=== PATIENT | male | born 1980 | race Caucasian/White ===

== ENCOUNTER 2016-11-12 13:36 | Emergency (ER) | payer OTHER ==
[~2016-11-12] VITALS: Ht 185.4 cm; Wt 88.1 kg
[2016-11-12] MEDS ORDERED: ERYTHROMYC1 APPLICAT RIGHT EYE (15:04)
[2016-11-12] MEDS ORDERED: POLYTRIM EYE DR10 ML RIGHT EYE (15:04)
[2016-11-12 15:21] VITALS: BP 119/82
== END 2016-11-12 15:21 | disposition home or self-care (01) ==
LOC: EME 13:36
DX: T15.01XA Foreign body in cornea, right eye, initial encounter (principal); X58.XXXA Exposure to other specified factors, initial encounter; Y93.89 Activity, other specified; F17.200 Nicotine dependence, unspecified, uncomplicated
CPT/HCPCS: 99281; 99284